=== PATIENT | male | born 1955 | race Caucasian/White ===

== ENCOUNTER 2019-09-05 12:35 | Outpatient (CLI) | payer BC ==
[~2019-09-05 12:35] MED LIST: Iopamidol 370 76% 100 ML VIAL ONE
--- NOTE | 2019-09-05 13:39 | CT ---
CT arteriogram chest with IV contrast and 3-D imaging HISTORY: Left atrial thrombus. Atrial fibrillation. COMPARISON: 02/08/2014. FINDINGS: Each atrium as well opacified. No filling defects evident. There is good contrast opacification of pulmonary arteries and thoracic aorta with normal branching o f the great vessels at the aortic arch. Circular metallic prosthesis at the bicuspid valve. No lung lesion or mediastinal adenopathy. Sternotomy wires in place. Simple cyst of the superior pole of the right kidney measures up to 3.3 cm. IMPRESSION: No evidence of atrial thrombus. No significant abnormalities are demonstrated.
== END 2019-09-05 12:36 | disposition home or self-care (01) ==
LOC: BICCT 12:35
PROVIDERS: ATTEND Internal Medicine Cardiovascular Disease
DX: I21.9 Acute myocardial infarction, unspecified (principal)
CPT/HCPCS: 71275; 82565; Q9967

== ENCOUNTER 2021-05-13 06:59 | Day surgery (SDC) | payer BC ==
[2021-05-10 12:03] VITALS: BMI 30.4
[2021-05-13] MEDS ORDERED: Lidocaine 1% PF 5 ML VIAL ONE (08:51)
[2021-05-13] MEDS ORDERED: PROPOFOL 20 ML ONE (09:08)
[2021-05-13] MEDS ORDERED: Lidocaine 2% PF 5 ML VIAL ONE (09:08)
== END 2021-05-13 10:01 | disposition home or self-care (01) ==
LOC: CCL 06:59
PROVIDERS: ATTEND Internal Medicine Cardiovascular Disease
PROC: 5A2204Z Restoration of Cardiac Rhythm, Single (ICD-10-PCS; principal; 2021-05-13)
DX: I48.92 Unspecified atrial flutter (principal); I48.0 Paroxysmal atrial fibrillation; G47.33 Obstructive sleep apnea (adult) (pediatric); E78.5 Hyperlipidemia, unspecified; Z87.891 Personal history of nicotine dependence; Z79.01 Long term (current) use of anticoagulants; Z79.899 Other long term (current) drug therapy; Z88.8 Allergy status to other drugs, medicaments and biological substances
CPT/HCPCS: 92960; 93005; 93010; J2001; J2704

== ENCOUNTER 2024-04-06 10:23 | Inpatient (IN) | payer BC, MEDICARE ==
[2024-04-06 12:59] LABS: #Basophils Less than 0.03 10x3/uL (0.0-0.2); #Eosinphils Less than 0.03 10x3/uL (0.0-0.7); %Basophils 0.2 % (0.0-1.0); %Eosinophils 0.2 % (0.0-10.0); %Lymphocytes 8.1 % (21.0-51.0); %Monocytes 8.7 % (0.0-10.0); %Neutrophils 82.5 % (42.0-75.0); Hematocrit 39.2 % (42.0-52.0); Hemoglobin 13.2 g/dL (14.0-18.0); Mean Corpuscular HGB CONC 33.7 g/dL (32.0-36.0); Mean Corpuscular Hemoglobin 30.6 pg (27.0-31.0); Mean Platelet Volume 9.4 fL (7.4-10.4); Platelet Count 321 10x3/uL (130-400); RBC Distribution Width 13.2 % (11.5-14.5); Red Blood Cell (RBC) Count 4.31 mill/uL (4.70-6.10)
[2024-04-06] MEDS ORDERED: PROPOFOL 20 ML ONE (13:16)
[2024-04-06] MEDS ORDERED: fentaNYL 50 mcg/mL 1 mL Vial ONE ×4 (13:16→16:47)
[2024-04-06] MEDS ORDERED: Lidocaine 1% PF 5 ML VIAL ONE (13:16)
[2024-04-06 13:29] LABS: Anion Gap 17 mmol/L (10-20); BUN (Urea Nitrogen) 14 mg/dL (8.4-25.7); Calc. Creatinine Clearance 0 mL/min (70-130); Calcium 9.6 mg/dL (7.8-10.44); Carbon Dioxide 19 mmol/L (23-31); Chloride 107 mmol/L (98-107); Estimated GFR 83; Glucose 123 mg/dL (80-115); Potassium 3.7 mmol/L (3.5-5.1); Sodium 139 mmol/L (136-145)
[2024-04-06] MEDS ORDERED: Ondansetron PF 4 MG/2 ML Vial ONE (13:44)
[2024-04-06] MEDS ORDERED: Dexamethasone 20 MG/5 ML VIAL ONE (13:44)
[2024-04-06] MEDS ORDERED: Lidocaine 2% 6 ML (Jelly) SYR ONE (13:56)
[2024-04-06] MEDS ORDERED: PROPOFOL 60 ML ONE (13:59)
[2024-04-06] MEDS ORDERED: Promethazine HCl 25 MG/ML VIAL IM PRN ×2 (15:06→15:42)
[2024-04-06] MEDS ORDERED: Ondansetron HCl/PF 4 MG/2 ML Vial IVP PRN (15:06)
[2024-04-06] MEDS ORDERED: Glucagon 1 MG/ML KIT IM PRN (15:42)
[2024-04-06] MEDS ORDERED: Dextrose 5% in Water 1,000 ML IV PRN (15:42)
[2024-04-06] MEDS ORDERED: Morphine 4 MG/ML VIAL SLOW IVP PRN (15:42)
[2024-04-06] MEDS ORDERED: Ipratropium/Albuterol 3 ML NEB NEB PRN (15:42)
[2024-04-06] MEDS ORDERED: Dextrose 50% Abboject 50 ML SYRINGE SLOW IVP PRN (15:42)
[2024-04-06] MEDS ORDERED: traMADol HCl 50 MG TAB PO PRN (15:42)
[2024-04-06] MEDS ORDERED: hydrALAZINE 20 MG/ML VIAL SLOW IVP PRN (15:42)
[2024-04-06] MEDS: LevoFLOXacin 750 mg/D5W 750 MG in Premix 1 BAG IVPB SCH (18:17)
[2024-04-06] MEDS: Ketorolac Tromethamine 30 MG (1 mL) VIAL IVP SCH (18:18)
[2024-04-06] MEDS: D5 1/2 NS w/20 mEq KCL 1,000 ML IV SCH (18:19)
[2024-04-06] MEDS: LevoFLOXacin D5W 500 mg (100 mL) BAG IVPB SCH (19:20)
[2024-04-06] MEDS: Dronedarone HCl 400 MG TAB PO SCH (20:04)
[2024-04-06] MEDS: Famotidine 20 MG TAB PO SCH (20:04)
[2024-04-06] MEDS: traMADol HCl 50 MG TAB PO PRN (20:11)
[2024-04-06] MEDS: Famotidine/PF 20 mg/2ml Vial SLOW IVP SCH (20:27)
[2024-04-06] MEDS: Atorvastatin Calcium 10 MG TAB PO SCH (20:38)
[2024-04-06] MEDS ORDERED: Atorvastatin Calcium 10 MG TAB PO SCH ×2 (21:00)
[2024-04-06] MEDS: metroNIDAZOLE 500 MG in Premix 1 BAG IVPB SCH (21:18)
[2024-04-07 06:47] LABS: #Basophils Less than 0.03 10x3/uL (0.0-0.2); #Eosinphils Less than 0.03 10x3/uL (0.0-0.7); %Basophils 0.2 % (0.0-1.0); %Eosinophils 0.1 % (0.0-10.0); %Lymphocytes 9.1 % (21.0-51.0); %Monocytes 11.3 % (0.0-10.0); %Neutrophils 78.8 % (42.0-75.0); Hematocrit 32.3 % (42.0-52.0); Hemoglobin 10.6 g/dL (14.0-18.0); Mean Corpuscular HGB CONC 32.8 g/dL (32.0-36.0); Mean Corpuscular Volume 91.5 fL (78.0-98.0); Mean Platelet Volume 9.9 fL (7.4-10.4); Platelet Count 279 10x3/uL (130-400); Red Blood Cell (RBC) Count 3.53 mill/uL (4.70-6.10)
[2024-04-07] MEDS: Fenofibrate Nanocrystallized 145 MG TAB PO SCH (08:38)
[2024-04-07] MEDS ORDERED: Iopamidol-370 76% 500 ML MDV (1 ML CHARGE) ONE (09:32)
[2024-04-07 14:59] VITALS: BMI 27.0
[2024-04-07 15:41] VITALS: BMI 270486.2
[2024-04-07] MEDS: Ondansetron PF 4 MG/2 ML Vial IVP PRN (21:02)
[2024-04-07 23:27] VITALS: TEMP 98.1
[2024-04-08 08:03] VITALS: BP 145/76
== END 2024-04-08 14:11 | disposition home or self-care (01) | DRG 386 ==
LOC: SDC 10:23 → OBSVTOIN 17:14 → T4-B 17:14
PROVIDERS: ADMIT Internal Medicine Gastroenterology; ATTEND Internal Medicine Gastroenterology
PROC: 0DBK8ZX Excision of Ascending Colon, Via Natural or Artificial Opening Endoscopic, Diagnostic (ICD-10-PCS; principal; 2024-04-06)
PROC: 0DBL8ZX Excision of Transverse Colon, Via Natural or Artificial Opening Endoscopic, Diagnostic (ICD-10-PCS; 2024-04-06)
PROC: 0DBN8ZX Excision of Sigmoid Colon, Via Natural or Artificial Opening Endoscopic, Diagnostic (ICD-10-PCS; 2024-04-06)
PROC: 0DBM8ZX Excision of Descending Colon, Via Natural or Artificial Opening Endoscopic, Diagnostic (ICD-10-PCS; 2024-04-06)
PROC: 0DJDXZZ Inspection of Lower Intestinal Tract, External Approach (ICD-10-PCS; 2024-04-06)
DX: K51.311 Ulcerative (chronic) rectosigmoiditis with rectal bleeding (principal); K92.1 Melena; I48.91 Unspecified atrial fibrillation; G47.30 Sleep apnea, unspecified; K64.9 Unspecified hemorrhoids; K60.3 Anal fistula; K63.89 Other specified diseases of intestine; K57.30 Diverticulosis of large intestine without perforation or abscess without bleeding; K64.4 Residual hemorrhoidal skin tags; Z79.899 Other long term (current) drug therapy; Z98.890 Other specified postprocedural states
CPT/HCPCS: 36415; 74177; 80048; 85025; 86140; 87324; 87449; 88305; J1100; J1885; J1956; J2405; J2704; J3010; J3480; Q9967; S0028